=== PATIENT | female | born 1950 | race Caucasian/White ===

== ENCOUNTER 2019-01-10 18:53 | Emergency (ER) | payer MEDICARE ==
[~2019-01-10] VITALS: Ht 163.8 cm; Wt 56.6 kg
--- NOTE | 2019-01-10 19:31 | NUR ---
FIRST CONTACT WITH PT. PT C/O VAGINAL SWELLING STARTED 4 DAYS AGO, IS NOW HAVING PAIN. STATED WAS USING SOME HEAVY OIL SOAP AND IS CONCERNED FOR CLOGGED "GLANDS". STATED TODAY WHILE HIKING, STARTED BLEEDING. STATED UNKNOWN WHERE BLEEDING IS COMING FROM. PT DENIES N/V/D. PT'S AOX4. RESPS EVEN AND UNLABORED. BP/SPO2 MONITORS IN PLACE.
[2019-01-10 19:53] LABS: MICROSCOPIC AUTO
[2019-01-10 19:53] LABS: BASOPHILS # (AUTO) 0.03 x10^3/uL (0-0.1); BASOPHILS % (AUTO) 0 % (0-1); EOSINOPHILS # (AUTO) 0.12 x10^3/uL (0-0.4); EOSINOPHILS % (AUTO) 2 % (1-7); LYMPHOCYTES # (AUTO) 2.18 x10^3/uL (1-3.4); LYMPHOCYTES % (AUTO) 30 % (22-44); MD NO; MEAN CORPUSCULAR HEMOGLOBIN 31.4 pg (27.0-34.8); MEAN CORPUSCULAR HGB CONC 32.7 g/dL (32.4-35.8); MEAN CORPUSCULAR VOLUME 95.8 fL (80-100); MEAN PLATELET VOLUME 8.3 fL (7.4-10.4); MONOCYTES # (AUTO) 0.56 x10^3/uL (0.2-0.8); MONOCYTES % (AUTO) 8 % (2-9); NEUTROPHILS # (AUTO) 4.36 x10^3/uL (1.8-6.8); NEUTROPHILS % (AUTO) 60 % (42-75); PLATELET COUNT 293 x10^3/uL (130-400); RED BLOOD COUNT 4.05 x10^6/uL (3.82-5.3)
[2019-01-10 19:59] LABS: CULTURE INDICATED? YES
[2019-01-10] MEDS ORDERED: LIDOCAINE-MPF 1%, 5ML INFIL ONE (20:00)
[2019-01-10] MEDS ORDERED: DIAZEPAM 5 MG TABLET PO ONE (20:00)
[2019-01-10] MEDS ORDERED: SULFAMETH./TRIMETHOPRIM DS 800MG/160MG TABLET PO ONE (20:00)
[2019-01-10] MEDS ORDERED: SULFAMETH./TRIMETHOPRIM DS 800MG/160MG TABLET ONE (20:01)
[2019-01-10] MEDS ORDERED: LIDOCAINE-MPF 1%, 2ML ONE (20:01)
[2019-01-10] MEDS ORDERED: DIAZEPAM 5 MG TABLET ONE (20:01)
[2019-01-10 20:02] LABS: ALBUMIN 3.8 g/dL (3.4-5.0); ANION GAP 7 mmol/L (5-15); CALCIUM 9.4 mg/dL (8.5-10.1); CHLORIDE 106 mmol/L (98-107); CREATININE 0.94 mg/dL (0.55-1.02)
--- NOTE | 2019-01-10 20:11 | NUR ---
PT MEDICATED PER EMAR. PT TOLERATED WELL.
[2019-01-10 20:54] VITALS: BP 157/91
[2019-01-10] MEDS ORDERED: HYDROcodone/APAP 5/325 TABLET ONE (21:03)
--- NOTE | 2019-01-10 21:07 | NUR ---
PT MEDICATED PER EMAR FOR PAIN. PT TOLERATED WELL.
--- NOTE | 2019-01-10 21:08 | NUR ---
PT GIVEN DC INSTRCUTIONS AND SCRIPTS. PT EDUCATED REGARDING DC MEDICATIONS. PT'S AOX4. RESPS EVEN AND UNLABORED. NO ACUTE DISTRESS AT DC. PT AMB TO DC WITH STEADY GAIT.
[2019-01-10] MEDS ORDERED: HYDROcodone/APAP 5/325 TABLET PO ONE (21:30)
== END 2019-01-10 21:12 | disposition home or self-care (01) ==
LOC: ED 21:06
DX: N76.4 Abscess of vulva (principal); N75.1 Abscess of Bartholin's gland; N30.01 Acute cystitis with hematuria; F17.200 Nicotine dependence, unspecified, uncomplicated
CPT/HCPCS: 36415; 56405; 80048; 81001; 82040; 85025; 87086; 99284